=== PATIENT | male | born 1960 | race Caucasian/White ===

== ENCOUNTER → 2024-04-26 16:10 | Outpatient (REF) | payer OTHER, SELFPAY | LOC: RAD 16:10 | PROVIDERS: ATTENDING PHYSICIAN Physician Assistant | DX: M54.50 Low back pain, unspecified (principal) | CPT/HCPCS: 72100 ==

== ENCOUNTER → 2024-07-29 07:09 | Outpatient (REF) | payer OTHER, SELFPAY | LOC: RCS 07:09 | PROVIDERS: ATTENDING PHYSICIAN Physician Assistant | DX: I10 Essential (primary) hypertension (principal); I48.91 Unspecified atrial fibrillation | CPT/HCPCS: 93306 ==

== ENCOUNTER 2024-08-15 09:50 | Day surgery (SDC) | payer OTHER, SELFPAY ==
--- NOTE | 2024-08-15 11:16 | ITS.CL.CARDI ---
Fire Prevention Chief - Cardioversion
Cardioversion
Procedure Report:
Date of Procedure: 08/15/24
Procedure: Cardioversion
Indication: Symptomatic atrial fibrillation
Performing Physician: Juan M Sosa MD
Technique: The patient was brought to the holding area. Signed informed consent was obtained. A time out was called and performed. The patient was anesthetized by the anesthesia service. Anticoagulation status was reviewed and appropriate. R2 pads
were placed anteriorly and posteriorly. A 200j, and 360J x2 synchronized biphasic shock failed to restore normal sinus rhythm. There were no complications.
Conclusion: Failed cardioversion from atrial fibrillation to sinus rhythm.
Recommendation: Routine post cardioversion care. Continue longwall shearer operator anticoagulation.
== END 2024-08-15 11:49 | disposition home or self-care (01) ==
LOC: CATH 09:50
PROVIDERS: ATTENDING PHYSICIAN Internal Medicine Cardiovascular Disease; FAMILY PHYSICIAN Physician Assistant; OTHER PHYSICIAN Internal Medicine Cardiovascular Disease
DX: I08.1 Rheumatic disorders of both mitral and tricuspid valves (principal); I48.91 Unspecified atrial fibrillation; I10 Essential (primary) hypertension; Q21.12 Patent foramen ovale; Z79.01 Long term (current) use of anticoagulants
CPT/HCPCS: 93312; 93320; 93325; 92960; 93005

== ENCOUNTER 2024-11-29 13:32 | Inpatient (IN) | payer OTHER, SELFPAY ==
[2024-11-15 09:04] VITALS: BMI 35.4
[2024-11-15 09:45] LABS: % Basophils 0.4 % (0-2); % Immature Granulocytes 0.4 % (0-0.5); % Lymphocytes 21.4 % (20.5-51.1); % Monocytes 7.1 % (1.7-9.3); % Neutrophils 69.7 % (42.2-75.2); Absolute Eosinophils 0.1 10^3/uL (0-0.7); Absolute Lymphocytes 1.5 10^3/uL (1.2-3.4); Absolute Monocytes 0.5 10^3/uL (0.1-0.6); Absolute Neutrophils 4.8 10^3/uL (1.4-6.5); Hematocrit 46.7 % (39.0-52.0); Hemoglobin 16.1 g/dL (13.0-18.0); Mean Corp Hgb Conc. 34.5 g/dL (33.0-37.0); Mean Corpuscular Hgb 31.6 pg (27.0-31.0); Mean Corpuscular Volume 91.6 fL (80.0-94.0); Mean Platelet Volume 9.7 fL (7.4-10.4); Nucleated Red Blood Cells % 0 % (-); Platelet Count 231 10^3/uL (130-400); Red Cell Dist. Width 13.4 % (11.5-14.5); White Blood Cell Count 6.9 10^3/uL (4.8-10.8)
[2024-11-15 09:56] LABS: INR 1.27; PT 16.4 Sec (11.4-14.6)
--- NOTE | 2024-11-15 09:56 | HPS.HSE ---
Family Physician
-
Family Physician: Isabella Grewal
Chief Complaint
-
Persistent atrial fibrillation.
History of Present Illness
The patient is a 64-year-old male presenting today for persistent atrial fibrillation. The patient reports he is relatively asymptomatic despite this diagnosis. He was diagnosed with atrial fibrillation following an evaluation with his
primary care physician. His primary care provider noted his heart rhythm sounded irregular and subsequently sent him to cardiology for further evaluation. He previously underwent a ASHLEY-guided cardioversion in August 2024 secondary to his
arrhythmia. Unfortunately, he was not able to maintain normal sinus rhythm after this procedure. He is on current pharmacological therapy with Atenolol. He reports he has been compliant with Eliquis for oral anticoagulation. He is interested in
pursuing with pulmonary vein isolation for further arrhythmia management. He denies any current complaints today such as chest pain and shortness of breath at rest, palpitations, nausea, vomiting, diarrhea, lightheadedness, dizziness, cough, sore
throat, or fever.
Medical History
Past Medical History
Past Medical History: Reports Other
Additional Past Medical History:
1. Persistent atrial fibrillation, status post ASHLEY-guided cardioversion 08/2024; pharmacological therapy with Atenolol and oral anticoagulation with Eliquis.
2. Hypertension.
3. Septal infarct on EKG.
4. Moderate PFO with [id number] shunt on recent echocardiogram.
5. Degenerative disc disease.
6. Glaucoma.
7. Prediabetes.
8. Obesity, BMI 35.4.
9. Remote history of tobacco abuse.
Past Surgical History: Reports Other
Additional Past Surgical History:
1. ASHLEY-guided cardioversion.
2. SLT.
3. Bilateral cataract extraction.
4. Colonoscopy.
Social History
Tobacco: Former Smoker (He is a former less than 1/2 pack per day cigarette smoker who quit tobacco altogether 30 years ago. )
Alcohol: Other (He reports drinking 1-2 beers or glasses of wine weekly. )
Living: Alone (in a 2 story home. His home has a first floor main setup. )
Family History
Family History: Not pertinent
Allergies / Home Medications
Allergy/Medication List:
Home medications:
1. Apixaban 5 mg p.o. twice a day.
2. Atenolol 25 mg p.o. every evening.
3. Hydrochlorothiazide 25 mg p.o. daily.
4. Lisinopril 20 mg p.o. daily.
5. Multivitamin 1 tablet p.o. daily.
Allergies: No known allergies.
Review of Systems
-
A 12 point ROS was completed and negative except as noted: Yes
Physical Exam
Vital Signs
Blood pressure 143/95. Heart rate 68. Respirations 18. Pulse ox 99% on room air.
Height 5 feet, 11 inches. Weight 115.2 kg. BMI 35.4.
Physical Exam
General: Well Developed, Well Nourished and No Apparent Distress
HEENT: NormoCephalic, Moist mucous membranes, Atraumatic and PERRLA
Respiratory: Clear
Cardiac: Irregular Rhythm
GI: Soft, Non Tender, Non Distended and Other (Obese. )
Musculoskeletal: No Edema and Normal Gait & Station
Skin: Warm and Dry
Neuro: AO x 3 and Nonfocal/grossly intact
Laboratory Results
-
11/15/24 09:22
DIAGNOSTIC STUDIES as of 11/15/2024: PT 16.4. INR 1.27. Sodium 140. Potassium 4.6. BUN 18. Creatinine 1.1. Glucose 129. Calcium 9.4. AST 24. ALT 20. Albumin 4.5. Type and screen A positive.
EKG 11/15/2024: Atrial fibrillation. Low voltage QRS. Septal infarct, cited on or before 08/15/2024.
Chest CT 11/15/2024: Single, individual right superior and inferior pulmonary veins. 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 No left atrial filling defect/thrombus is identified.
Transesophageal echocardiogram 08/15/2024: Normal left ventricular size, thickness, and systolic function. Left ventricular ejection fraction is 55-60%. Normal right ventricular size and function. Moderately dilated left atrium.No thrombus detected
in the left atrial appendage.Moderate sized patent foramen ovale present with [id number] shunt.
Impression/Plan
-
IMPRESSION/PLAN:
1. Persistent atrial fibrillation: The patient is in need of pulmonary vein isolation with Dr. Eloy Burgos on 11/29/2024. The benefits and risks of the procedure have been explained to the patient. The patient understands these risks and wishes to
proceed. He will not be required to undergo a pre-procedural transesophageal echocardiogram as he has been compliant with his home oral anticoagulation. He is aware to continue his Eliquis uninterrupted prior to his procedure. He will take no
medications the morning of his ablation.
[2024-11-15 09:58] LABS: ALT (SGPT) 20 U/L (0-50); AST (SGOT) 24 U/L (17-59); Albumin 4.5 g/dl (3.5-5.0); Alkaline Phosphatase 76 U/L (38-126); Blood Urea Nitrogen 18 mg/dl (9-20); Calcium 9.4 mg/dl (8.4-10.2); Carbon Dioxide 31 mmol/L (22-30); Chloride 101 mmol/L (98-107); Estimated Creatinine Clearance 89 ml/min; Glucose 129 mg/dl (70-99); Magnesium 2.3 mg/dl (1.6-2.3); Potassium 4.6 mmol/L (3.5-5.1); Sodium 140 mmol/L (135-145); Total Bilirubin 1.1 mg/dl (0.2-1.3); Total Protein 7.6 g/dl (6.3-8.2); eGFR > 60.00
[2024-11-29] VITALS (18 sets, daily range): BP systolic 114–149; BP diastolic 79–97; BMI 35.4
[2024-11-29] MEDS: TYLENOL 1000 MG PO (09:03)
[2024-11-29 12:42] LABS: ACT-LR - POC 239 Seconds (116-155)
[2024-11-29 12:42] LABS: ACT-LR - POC 318 Seconds (116-155)
[2024-11-29 12:42] LABS: ACT-LR - POC 322 Seconds (116-155)
[2024-11-29 13:15] LABS: ACT-LR - POC 355 Seconds (116-155)
[2024-11-29 13:22] LABS: ACT-LR - POC 261 Seconds (116-155)
--- NOTE | 2024-11-29 14:23 | ITS.CL.ABL ---
White Work Cleaner - Ablation
Ablation
Procedure Report:
Primary Supply Chain Development Manager: Eloy Deal MD
Procedure Date: 11/29/2024
Patient History:
Patient is a pleasant 64-year-old male with past medical history significant for hypertension, prediabetes, persistent atrial fibrillation, PFO.
See H&P for complete details.
Indication:
Symptomatic persistent atrial fibrillation
Early recurrence following cardioversion
Arrhythmia Specific History:
Prior Medical Therapies for Rate and Rhythm Control:
X Beta-rehana
[ ] Calcium channel-rehana
[ ] Amiodarone
[ ] Dronederone
[ ] Sotalol
[ ] Flecainide
[ ] Dofetilide
[ ] Options limited by bradycardia
[ ] Options limited by comorbid renal disease
Prior Procedural Therapies for AF/AFL:
X Cardioversion
[ ] Pulmonary Vein Isolation
[ ] Posterior Wall Isolation
[ ] Additional lines (Specify)
[ ] Surgical Mercado-MAZE or PVI (Specify)
Procedure Performed:
X AF ablation procedure (31083) -- includes LA/CS pacing, trans-septal, 3D mapping, + ICE
[ ] +IV drug (94940)
[ ] +Other Arrhythmia (38346)
X +Other AF Line/ablation (65268) - posterior wall isolation (floor, roof, wall)
Risks and expected recovery has been explained in detail. Alternative options have been explored, and in a shared-decision making fashion we have decided that this was the most appropriate procedure.
Method
NPO status confirmed. Grounding pad applied. Defibrillator pads applied. Continuous surface ECG, pulse oximetry, and blood pressure were monitored. Procedure was performed under general anesthesia, with anesthesia services.
Both groins were clipped, prepped with Chloraprep, and draped in sterile fashion. Time out was called. Local anesthesia administered with bupivacaine. The right femoral vein was accessed for catheter placement, using ultrasound guidance (images
saved to record), micro-puncture needle/wire, and modified seldinger technique. 3 sheaths were placed. The following catheters were used:
[ ] Tacticath SE (D/F Curve) ablation catheter
X Viewflex 9Fr ICE catheter
X Inquiry decapolar 6Fr diagnostic catheter
[ ] CRD Hex 6Fr
[ ] Arctic Front Advance Cryoballoon ([ ]28mm[ ]23mm)
[ ] Achieve Advance mapping catheter ([ ]15mm[ ]20mm)
X FlexCath Contour 10 Fr with PulseSelect PFA Catheter
X Advisor HD Grid Mapping Catheter, SE
[ ] [employer] AcuNav 8 Fr ICE catheter
[ ]Other: [ ]
Intracardiac ultrasound (ICE) was carefully advanced into the right atrium to guide sheath placement over a J-wire, catheter placement, guide trans-septal puncture, identify potential complications, identify anatomic structures and ensure proper
contact between ablation catheter and tissue. A trace basal pericardial effusion was noted at the start of the case, this remained unchanged throughout and at case completion. Additionally, a small PFO at the superior portion of the foramen ovale
near superior limbus was noted, images recorded.
Heparin was given prior to trans-septal puncture. Heparin was given to achieve and maintain a target ACT of 300-400 seconds throughout the procedure.
Trans-septal access was performed under ICE guidance. The trans-septal puncture was performed with a SafeSept wire through a Brockenbrough needle assembly through the steerable sheath in a separate location to the PFO. The wire was visualized as it
entered the LSPV and system advanced under ICE guidance and fluoroscopy into the LA. The Brockenbrough needle assembly, SafeSept wire and sheath dilator were removed under negative pressure. LA pressure was measured and recorded.
ICE and 3D mapping was performed to identify relevant cardiac structures. A careful 3D map was created to assess for regions of low-voltage and abnormal electrogram signals using HD grid mapping catheter and PulseSelect catheter. Additional mapping
was performed as outlined below.
Prior to ablation, glycopyrrolate was provided. PulseSelect catheter was advanced over J-wire to the ostium of each vein. Pulmonary vein isolation was performed with ostial and antral lesions in a circumferential manner. Contact was visualized via
EAM, ICE, fluoroscopy, and EGM signals. Posterior wall isolation was performed by anchoring the J-wire within the pulmonary vein and placing the PulseSelect catheter in contact with the posterior wall as visualized by aforementioned methods.
Following completion of ablation lesions, sinus rhythm was not restored despite multiple attempts with synchronized DCCV (200J, 360J x3 with patch adjustments). A post-ablation voltage/activation map was performed in AF. Entrance block were
confirmed for each vein and the posterior wall by electroanatomic mapping noting lack of voltage or EGM.
Catheter and sheath were removed from the left atrium and post-ablation intracardiac echo evaluation was consistent with pre-ablation with no changes and there is no left atrial thrombus or left ventricle thrombus seen. Electrophysiology study was
performed. Hemostasis was obtained with figure of 8 stitch for each groin and with manual pressure. Protamine was used for reversal.
Estimated Blood Loss
5 mL
Complications
None
Fluoroscopy: 2.1 minutes; 6.94 mGy; DAP 2.39
Baseline Intervals:
Rhythm: AF
QRS: 109 ms
QT: 377 ms
Post-Procedure Intervals:
QRS: 98ms
QT: 385 ms
Recommendations
- Bedrest with straight-leg precautions as ordered
- Admit with anticipate discharge home tomorrow after overnight observation
- Resume home medications as indicated
- Ok to resume anticoagulation tonight if patient and groin sites stable
- PPI daily for 30 days
- Start sotalol 80 mg twice daily (first dose now, second tonight); EKG 2h post each dose. Planned DCCV on Wednesday (NPO after midnight ).
- Discontinue atenolol.
- Monitor renal function, electrolytes; maintain on telemetry, no shower
- Plan for follow-up in office as scheduled
Eloy Burgos DO, FACC
Clinical Cardiac Mechanical Handyman
cc: Eloy Deal MD; Isabella Grewal
[2024-11-29] MEDS: BETAPACE 80 MG PO ×2 (14:45→21:45)
--- NOTE | 2024-11-29 17:11 | PTCARENOTE ---
received pt from recovery area. AOx3, no complaints of pain or discomfort. Right groin CDI. sutures to be removed at 1715. Educated pt on limb restriction sand expected OOB time. Afib on tele monitor, VSS. Oriented to room and unit. Call gardner within
reach.
[2024-11-29] MEDS: ELIQUIS 5 MG PO (19:21)
--- NOTE | 2024-11-29 23:10 | PTCARENOTE ---
Received patient at change of shift. Afib on the monitor. HR in the 80s. R groin dressing CDI, no evidence of hematoma. No complaints from pt at this time, call gardner within reach.
[2024-11-30] VITALS (10 sets, daily range): BP systolic 90–129; BP diastolic 53–87; BMI 34.4
[2024-11-30 04:15] LABS: Hematocrit 43.9 % (39.0-52.0); Hemoglobin 15.1 g/dL (13.0-18.0); Mean Corp Hgb Conc. 34.4 g/dL (33.0-37.0); Mean Corpuscular Hgb 31.5 pg (27.0-31.0); Mean Corpuscular Volume 91.6 fL (80.0-94.0); Mean Platelet Volume 10.3 fL (7.4-10.4); Platelet Count 234 10^3/uL (130-400); Red Blood Cell Count 4.79 10^6/uL (4.70-6.10); Red Cell Dist. Width 12.7 % (11.5-14.5); White Blood Cell Count 10.9 10^3/uL (4.8-10.8)
[2024-11-30 04:41] LABS: Blood Urea Nitrogen 25 mg/dl (9-20); Calcium 8.6 mg/dl (8.4-10.2); Carbon Dioxide 21 mmol/L (22-30); Chloride 106 mmol/L (98-107); Estimated Creatinine Clearance 96 ml/min; Glucose 135 mg/dl (70-99); Magnesium 2.3 mg/dl (1.6-2.3); Potassium 4.5 mmol/L (3.5-5.1); Sodium 137 mmol/L (135-145); eGFR > 60.00
[2024-11-30] MEDS: BETAPACE 80 MG PO ×2 (06:00→18:03)
[2024-11-30] MEDS: ELIQUIS 5 MG PO ×2 (09:04→20:02)
[2024-11-30] MEDS: ORETIC 25 MG PO (09:05)
[2024-11-30] MEDS: FLUSH (NSS) 1 FLUSH IV (09:05)
[2024-11-30] MEDS: ZESTRIL 20 MG PO (09:05)
--- NOTE | 2024-11-30 09:28 | W.PN.CARDCBS ---
Addendum entered and electronically signed by Andrea Foster MD 11/30/24 10:55:
Patient seen, interviewed and examined by me.
He tells me he feels well without chest pain shortness of breath palpitations or dizziness.
Well-appearing, no acute distress
Irregular rate and rhythm with normal S1 and S2, no S3 no S4. There is a grade 1/6 apical holosystolic murmur and no rubs. PMI is normally placed.
Lungs are clear to auscultation bilaterally without wheezes rales or rhonchi.
Abdomen soft nontender nondistended with normoactive bowel sounds
Extremities show trace pretibial edema bilaterally no clubbing or cyanosis.
Neurologic exam is grossly nonfocal.
Telemetry which is reviewed by me shows continued atrial fibrillation, rate controlled and no significant ventricular arrhythmias.
I have personally reviewed the ECG which demonstrates atrial fibrillation at a heart rate of 60 bpm, corrected QT interval is 400 ms
Hemoglobin is stable
BUN and creatinine 25 and 1 with a potassium of 4.5. Magnesium is 2.3
He has persistent atrial fibrillation of unclear duration and underwent pulmonary vein isolation as well as left atrial posterior wall ablation on November 29, 2024. After ablation despite several attempts at cardioversion, sinus rhythm could not be
restored.
We are now loading him with sotalol in an attempt to decrease his defibrillation threshold and plan for cardioversion tomorrow
He is tolerating sotalol well with stable corrected QT interval. Will continue to monitor QT interval as we continue with sotalol loading.
His dose of sotalol tomorrow morning will be dose #4. After that we can plan for cardioversion and still administer dose #5 here in the hospital while he is being monitored with consideration for discharge after observed being him following dose #5.
All of his questions have been answered.
Original Note:
Today's Communication / Plan
-
post PVI, continue sotalol load
plan DCCV in am
Impression / Plan
-
PCP: Isabella Grewal PA-C
CDY: Eloy Ca MD
Impression:
Persistent Afib
post PVI, unsuccessful cardioversion x5
Sotalol loading
HTN
Moderate PFO with [id number]-[id number]-[id number] shunt on recent echocardiogram.
Degenerative disc disease.
Glaucoma.
Prediabetes.
Obesity, BMI 35.4.
Remote history of tobacco abuse
Plan:
post ablation remains in controlled AFib HR 60-80's
groin stable
Sotalol loading dose #3 this am QTc 400, continue
OAC Eliquis
Stop atenolol
HTN continue lisinopril and HCTZ
Activity restrictions reviewed
Plan DCCV in am after 5th dose
continue to monitor on tele
Progress Note - Harness Puller
Subjective
Date of Service: November 30, 2024
denies cp, sob
Objective
Labs:
11/30/24 03:37
11/30/24 03:37
Labs
Hgb 15.1 g/dL (13.0-18.0) 11/30/24 03:37
Hct 43.9 % (39.0-52.0) 11/30/24 03:37
Plt Count 234 10^3/uL (130-400) 11/30/24 03:37
PT 16.4 Sec (11.4-14.6) H 11/15/24 09:22
INR 1.27 11/15/24 09:22
Sodium 137 mmol/L (135-145) 11/30/24 03:37
Potassium 4.5 mmol/L (3.5-5.1) 11/30/24 03:37
BUN 25 mg/dl (9-20) H 11/30/24 03:37
Creatinine 1.0 mg/dL (0.7-1.3) 11/30/24 03:37
Glucose 135 mg/dl (70-99) H 11/30/24 03:37
Vital Signs and I&O:
Vital Signs
Temp Pulse Resp BP Pulse Ox
99 F 67 20 106/72 99
11/30/24 07:26 11/30/24 07:28 11/30/24 07:26 11/30/24 07:28 11/30/24 07:26
Vital Signs
Temp Pulse Resp BP Pulse Ox
99 F 67 20 106/72 99
11/30/24 07:26 11/30/24 07:28 11/30/24 07:26 11/30/24 07:28 11/30/24 07:26
Intake & Output
11/28/24 11/29/24 11/30/24 12/01/24
06:59 06:59 06:59 06:59
Intake Total 1100 / 1100
Output Total 375 / 375
Balance 725 / 725
Physical Exam
Physical Exam
NAD, AOX3
S1, S2, RRR
CTAB< non labored, no wheeze
SNTND bsx4
R fem c/d/i, soft, mild ecchymosis, non tender
--- NOTE | 2024-11-30 09:43 | CM ---
Reviewed chart. Met with Mr. Hankins to review discharge plans. He states prior to admission he resides alone in a two story home with six steps to enter. He states he has a first floor set-up. He states prior to admission he was independent with
ambulation and adls. He states he does not have any DME in the home. He states he has a prescription plan and uses [facility]. Medical work-iup in progress. The discharge plan is to return home when medically stable.
--- NOTE | 2024-11-30 10:17 | PTCARENOTE ---
Received patient this morning resting in bed, offers no complaints. Post sotalol EKG done this AM after 0600 dose, QTc < 500. Patient is aware that he is scheduled for repeat CV tomorrow if he remains in AF.
--- NOTE | 2024-11-30 16:35 | PTCARENOTE ---
Patient with HR in the 40's at times this afternoon, lowest 36, remains in AF. Notified Amish Eric NP of low HR, no further orders at this time. BP now 94/63, patient states that when he was home and new medications were started he was also
hypotensive. TT to Amish Eric NP re: BP.
--- NOTE | 2024-11-30 18:10 | PTCARENOTE ---
Ok to continue with current dose of sotalol as per Amish Eric NP after she confirmed with Dr. Foster as patient is asymptomatic. Given 4th dose of sotalol, remains in AF with rate presently in the 60's. Patient is aware he is to be NPO in the AM if
still in AF for CV.
--- NOTE | 2024-11-30 21:09 | PTCARENOTE ---
Received patient at change of shift. Patient sitting in bed, awake and oriented x3. Right groin PAPER TWISTER TENDER-- soft, no hematoma, no ecchymosis. BP 100/53, A-Fib 50s-60s, 98% on room air. EKG after 4th dose sotalol QTc= 396. Discussed plan of care for
evening and morning. Patient verbalized understanding of being NPO after midnight. Call gardner within reach.
[2024-12-01 06:01] VITALS: BP 127/78
[2024-12-01] MEDS: BETAPACE 80 MG PO (06:01)
[2024-12-01 06:26] LABS: Hematocrit 44.4 % (39.0-52.0); Hemoglobin 15.2 g/dL (13.0-18.0); Mean Corp Hgb Conc. 34.2 g/dL (33.0-37.0); Mean Corpuscular Hgb 31.7 pg (27.0-31.0); Mean Corpuscular Volume 92.7 fL (80.0-94.0); Mean Platelet Volume 9.8 fL (7.4-10.4); Platelet Count 194 10^3/uL (130-400); Red Blood Cell Count 4.79 10^6/uL (4.70-6.10); Red Cell Dist. Width 12.8 % (11.5-14.5); White Blood Cell Count 8.7 10^3/uL (4.8-10.8)
[2024-12-01 06:46] LABS: Blood Urea Nitrogen 29 mg/dl (9-20); Calcium 8.8 mg/dl (8.4-10.2); Carbon Dioxide 24 mmol/L (22-30); Chloride 104 mmol/L (98-107); Estimated Creatinine Clearance 87 ml/min; Glucose 93 mg/dl (70-99); Magnesium 2.4 mg/dl (1.6-2.3); Potassium 3.9 mmol/L (3.5-5.1); Sodium 138 mmol/L (135-145); eGFR > 60.00
[2024-12-01] MEDS: ZESTRIL 20 MG PO (08:11)
[2024-12-01] MEDS: ELIQUIS 5 MG PO (08:12)
[2024-12-01] MEDS: ORETIC 25 MG PO (08:12)
[2024-12-01 08:34] VITALS: BP 109/78
--- NOTE | 2024-12-01 09:14 | W.PN.CARDCBS ---
Addendum entered and electronically signed by Juan M Sosa MD 12/01/24 12:08:
I saw and examined the patient.
The Staffing Associate's note was reviewed and I agree with the note.
Comment:
GEN: No distress, awake, Ox3
HEENT: supple, anicteric, mmm
LUNGS: CTA, no wheezes/rales
CV: Reg, S1/S2, 1/6 syst LSB, no gallop
ABD: soft, BS+, NT/ND
EXT: No edema
NEURO: Gross non-focal
SKIN: No rash
Plan:
Status post cardioversion and back in sinus rhythm. Continue sotalol 80 mg every 12. QTc is stable. Continue Eliquis.
Stable for discharge later today.
Original Note:
Today's Communication / Plan
-
5th dose sotalol this am remains in Afib with SVR
plan for cardioversion today
poss d/c home after
Impression / Plan
-
PCP: Isabella Grewal PA-C
CDY: Eloy Ca MD
Impression:
Persistent Afib
post PVI, unsuccessful cardioversion x5
Sotalol loading
HTN
Moderate PFO with zher-ed-wzhdo shunt on recent echocardiogram.
Degenerative disc disease.
Glaucoma.
Prediabetes.
Obesity, BMI 35.4.
Remote history of tobacco abuse
Plan:
post ablation remains in controlled AFib with SVR HR 50-60
groin stable
Sotalol 80mg q12h dose #5 this am QTc 372
OAC Eliquis
Stop atenolol
HTN -bp were on lower side yesterday, this am 120's, will continue lisinopril, stop HCTZ
Activity restrictions reviewed
Plan DCCV today
continue to monitor on tele
Progress Note - Instructor Substitute Cosmetology
Subjective
Date of Service: December 01, 2024
denies cp, sob, LH/dizziness
Objective
Labs:
12/01/24 06:10
12/01/24 06:10
Labs
Hgb 15.2 g/dL (13.0-18.0) 12/01/24 06:10
Hct 44.4 % (39.0-52.0) 12/01/24 06:10
Plt Count 194 10^3/uL (130-400) 12/01/24 06:10
PT 16.4 Sec (11.4-14.6) H 11/15/24 09:22
INR 1.27 11/15/24 09:22
Sodium 138 mmol/L (135-145) 12/01/24 06:10
Potassium 3.9 mmol/L (3.5-5.1) 12/01/24 06:10
BUN 29 mg/dl (9-20) H 12/01/24 06:10
Creatinine 1.1 mg/dL (0.7-1.3) 12/01/24 06:10
Glucose 93 mg/dl (70-99) 12/01/24 06:10
Vital Signs and I&O:
Vital Signs
Temp Pulse Resp BP Pulse Ox
98.2 F 52 18 127/78 98
12/01/24 08:32 12/01/24 08:12 12/01/24 08:32 12/01/24 08:12 12/01/24 08:32
Vital Signs
Temp Pulse Resp BP Pulse Ox
98.2 F 52 18 127/78 98
12/01/24 08:32 12/01/24 08:12 12/01/24 08:32 12/01/24 08:12 12/01/24 08:32
Intake & Output
11/29/24 11/30/24 12/01/24 12/02/24
06:59 06:59 06:59 06:59
Intake Total 1100 / 1100 720 / 720
Output Total 375 / 375
Balance 725 / 725 720 / 720
Physical Exam
Physical Exam
NAD< AOX3
S1, S2, irreg
CTAB, non labored, no wheeze
SNTND bsx4
R fem c/d/i no HT
[2024-12-01 11:23] VITALS: BP 89/65
[2024-12-01 11:25] VITALS: BP 88/49
--- NOTE | 2024-12-01 11:45 | PTCARENOTE ---
pt off unit for cv.
--- NOTE | 2024-12-01 12:03 | ITS.CL.CARDI ---
Mineral Economist - Cardioversion
Cardioversion
Procedure Report:
Date of Procedure: 12/01/24
Procedure: Cardioversion
Indication: Symptomatic atrial fibrillation
Performing Physician: Rafa Sosa MD
Technique: The patient was brought to the holding area. Signed informed consent was obtained. A time out was called and performed. The patient was anesthetized by the anesthesia service. Anticoagulation status was reviewed and appropriate. R2 pads
were placed anteriorly and posteriorly. A 200 J synchronized biphasic shock failed to restored normal sinus rhythm and then a 360J synchronized biphasic shock restored sinus rhythm without significant bradycardia. There were no complications.
Conclusion: Uncomplicated cardioversion from atrial fibrillation to sinus rhythm.
Recommendation: Routine post cardioversion care. Continue senior living anticoagulation.
--- NOTE | 2024-12-01 13:36 | PTCARENOTE ---
pt back from cv. pt is sb on the monitor, hr in the 50s, vss. pt offers no complaints at this time. pt educated on plan of care and on educated on plan of care. call gardner within reach.
--- NOTE | 2024-12-01 14:39 | PTCARENOTE ---
d/c instructions read to pt and pt verbalized understanding. pt left w/ d/c instructions, educational booklet and belongings from room. pt left via wheelchair w/ staff member.
--- NOTE | 2024-12-01 14:52 | W.DS.TRANS ---
DC Summary - Gold Prospector
-
Discharge Instructions:
Sleep Apnea Risk Intermediate
Discharge Diagnosis/Procedures AFib, s/p ablation
Diet Low Cholesterol
Driving Restrictions No driving for 24 hours
Instructions:
Stand-Alone Forms: DC Instructions- Cath/EP Lab
Changes to Home Medications: Yes
Discharge Medications:
DC Medications w/original date entered in [facility]
apixaban 5 mg tablet (Eliquis) 5 mg PO BID 08/15/24
lisinopril 20 mg tablet 20 mg PO DAILY 08/15/24
multivitamin 1 tab PO DAILY 08/15/24
pantoprazole 40 mg tablet,delayed release (Protonix) 40 mg PO DAILY #30 tabs 11/29/24
sotalol 80 mg tablet 80 mg PO BID #60 tabs 12/01/24
Home Medication Changes
new to sotalol, stopped atenolol and HCTZ
Pending Results: No
== END 2024-12-01 14:46 | disposition home or self-care (01) | DRG 274 ==
LOC: IVU 13:32
PROVIDERS: Internal Medicine Cardiovascular Disease; Nurse Practitioner; Nurse Practitioner Adult Health; ADMITTING PHYSICIAN Internal Medicine Cardiovascular Disease; FAMILY PHYSICIAN Physician Assistant
PROC: 02K83ZZ Map Conduction Mechanism, Percutaneous Approach (ICD-10-PCS; 2024-11-29)
PROC: 4A0234Z Measurement of Cardiac Electrical Activity, Percutaneous Approach (ICD-10-PCS; 2024-11-29)
PROC: B24BZZ4 Ultrasonography of Heart with Aorta, Transesophageal (ICD-10-PCS; 2024-11-29)
PROC: 02583ZF Destruction of Conduction Mechanism using Irreversible Electroporation, Percutaneous Approach (ICD-10-PCS; 2024-11-29)
PROC: 4A023FZ Measurement of Cardiac Rhythm, Percutaneous Approach (ICD-10-PCS; 2024-11-29)
PROC: 5A2204Z Restoration of Cardiac Rhythm, Single (ICD-10-PCS; 2024-12-01)
DX: I48.19 Other persistent atrial fibrillation (principal); Q21.12 Patent foramen ovale; I10 Essential (primary) hypertension; H40.9 Unspecified glaucoma; E66.9 Obesity, unspecified; R73.03 Prediabetes; Z60.2 Problems related to living alone; Z68.35 Body mass index [BMI] 35.0-35.9, adult; Z79.01 Long term (current) use of anticoagulants; Z79.899 Other long term (current) drug therapy; Z87.891 Personal history of nicotine dependence
CPT/HCPCS: 36415; 75572; 76937; 80048; 80053; 83735; 85025; 85027; 85347; 85610; 86850; 86900; 86901; 92960; 93005; 93656; 93657; C1732; C1733; C1766; C1769; C1894; Q9967